=== PATIENT | male | born 1960 | race Caucasian/White ===

== ENCOUNTER 2022-01-18 17:04 | Emergency (ER) | payer OTHER, SELFPAY ==
[2022-01-18 17:21] VITALS: BP 128/84; PULSE 82; RESP 17; TEMP 36.7; O2SAT 97; BMI 19.9
--- NOTE | 2022-01-18 17:51 | HMH.EDUTC ---
[facility] [place] Impression: Cellulitis of right knee, Acute lymphangitis of right lower extremity Disposition: Home, Self-Care Condition on Discharge: Good Instructions: DI for Cellulitis -- Adult Additional Instructions: Take all antibiotics as prescribed until gone Return to [facility] immediately if redness/pain continue to worsen or do not improve Prescriptions: Sulfamethoxazole/Trimethoprim [Bactrim DS tablet] 1 each PO BID 10 Days #20 tab Transmission Status: Pending to [facility] Doxycycline Hyclate [Doxycycline Hyclate 100mg Tablet] 100 mg PO BID 10 Days #20 tab Transmission Status: Pending to [facility] Referrals: Provider,Referral, [Primary Care Provider] - Time of Disposition: 18:03 Medical Decision Making - Casimiro Inquiry Pt receiving controlled substance: No Vital Signs: 01/18/22 17:21 Temperature 98.1 F Temperature Source Oral Pulse Rate [Left Radial] 82 Respiratory Rate 17 Blood Pressure [Right Arm] 128/84 Blood Pressure Mean [Right Arm] 98 02 Sat by Pulse Oximetry 97 Orders (Tests/Meds): ED MEDICATIONS Generic Name Dose Route Start Last Admin Trade Name Freq PRN Reason Stop Dose Admin Ceftriaxone Sodium 1 gm 01/18/22 17:57 Ceftriaxone 1gm Vial IM 01/18/22 17:58 ONCE ONE Lidocaine HCl 0 ml 01/18/22 17:57 Lidocaine 1% 5ml Pf Vial IM 01/18/22 17:58 ONCE ONE Discontinued Medications Generic Name Dose Route Start Last Admin Trade Name Freq PRN Reason Stop Dose Admin Doxycycline Hyclate 100 mg 01/18/22 17:56 Doxycycline Hycl 100 Mg Tablet PO 01/18/22 17:57 ONCE ONE [facility] [place] - General Stated complaint: possible bug bite on R Leg Time Seen by Provider: 01/18/22 17:51 Source of Information: Patient Description of Symptoms (Recalled from Triage Doc. by RN): patient comes in today for insect bite on right leg. the area is behind his right knee. patients states he was working in the garden and did not pay attention to the bugs. a few days ago patient notcied redness, swelling, tenderness. patient also noticed a red streak on his right upper thigh. HEENT Symptoms (Recalled from RN notes): No Resp Symptoms (Recalled from RN notes): No Skin Symptoms (Recalled from RN notes): Yes MS Symptoms (Recalled from RN notes): No Functional Status (Recalled from RN notes): wnl - History of Present Illness Provider Complaint: Patient states he was bitten by something while working in the garden a few days ago. Was bitten in the bend of his right knee. Has gotten progressively larger, more red, more sore. Now has red streaking going towards groin area. No fever. No nausea/vomiting. Onset (ago): day(s) (3) Location: right, lower extremity Radiation: other (groin) Severity: moderate Quality: burning Consistency: constant Relieving factors: none Exacerbating factors: none Associated symptoms: denies other symptoms Treatments prior to arrival: none - Related Data Previous Rx's Medication Instructions Recorded Doxycycline Hyclate [Doxycycline 100 mg PO BID 10 Days #20 tab 01/18/22 Hyclate 100mg Tablet] Sulfamethoxazole/Trimethoprim 1 each PO BID 10 Days #20 tab 01/18/22 [Bactrim DS tablet] Allergies Allergy/AdvReac Type Severity Reaction Status Date / Time No Known Allergies Allergy Verified 01/18/22 17:27 - Worker's Comp Is this a Worker's Comp case?: No [facility] History - Hepatitis A Screen Attestation statement:: This patient has been screened for Hepatitis A risk factors. I have reviewed the patient's past medical history: Yes ROS Obtained: Yes All systems reviewed & no additional complaints - Integumentary/Breasts Skin/Breast: Reports as per HPI, Reports redness, Reports skin pain Physical Exam - General General appearance: alert, in no apparent distress - Head Head exam: atraumatic, normocephalic - Eye Eye exam: Present: PERRL - Neck Neck exam: Present: normal inspection.
[2022-01-18 18:26] VITALS: BP 128/84; PULSE 82; RESP 17; TEMP 36.7
== END 2022-01-18 18:27 | disposition home or self-care (01) ==
PROVIDERS: Emergency Provider Physician Assistant
DX: L03.116 Cellulitis of left lower limb (principal); L03.125 Acute lymphangitis of right lower limb; Z79.899 Other long term (current) drug therapy; W57.XXXA Bitten or stung by nonvenomous insect and other nonvenomous arthropods, initial encounter
CPT/HCPCS: 96372; 99213; G0463; J0696